=== PATIENT | male | born 1970 | race African-American/Black ===

== ENCOUNTER 2024-09-13 22:34 | Emergency (ER) | payer OTHER ==
[~2024-09-13] VITALS: Ht 167.6 cm; Wt 81.0 kg
[2024-09-13 22:42] VITALS: O2SAT 98
[2024-09-13 22:43] VITALS: BP 145/88; PULSE 101; RESP 14; TEMP 98; O2SAT 97
[2024-09-13] MEDS ORDERED: OFLO5DRO4 LEFT EAR (23:50)
== END 2024-09-13 23:59 | disposition home or self-care (01) ==
LOC: ER 22:34
DX: T16.2XXA Foreign body in left ear, initial encounter (principal); J44.89 Other specified chronic obstructive pulmonary disease; H60.92 Unspecified otitis externa, left ear; W44.9XXA Unspecified foreign body entering into or through a natural orifice, initial encounter; Y93.89 Activity, other specified; Y92.89 Other specified places as the place of occurrence of the external cause; Y99.8 Other external cause status
CPT/HCPCS: 69200; 99283; 99284

== ENCOUNTER 2025-01-25 02:37 | Emergency (ER) | payer OTHER ==
[~2025-01-25] VITALS: Ht 167.6 cm; Wt 77.0 kg
[~2025-01-25 02:37] MED LIST: OFLO5DRO4 LEFT EAR
[2025-01-25 03:18] VITALS: TEMP 36.7
[2025-01-25 04:32] LABS: CLARITY URINE CLEAR (CLEAR); COLOR URINE YELLOW (YELLOW); GLUCOSE URINE NEGATIVE (NEGATIVE); KETONES URINE NEGATIVE (NEGATIVE); LEUKOCYTE ESTERASE URINE NEGATIVE (NEGATIVE); NITRITE URINE NEGATIVE (NEGATIVE); OCCULT BLOOD URINE NEGATIVE (NEGATIVE); PH URINE 5.5 (4.5-8.0); PROTEIN URINE NEGATIVE (NEGATIVE); SPECIFIC GRAVITY URINE 1.018 (1.005-1.030); UROBILINOGEN URINE 0.2 E.U./dL (0.2-1.0)
[2025-01-25 04:50] LABS: BASOPHILS % 1.3 % (0.0-2.0); DIFFERENTIAL COMMENT 0; EOSINOPHILS % 2.3 % (0.0-5.0); HEMATOCRIT. 50.3 % (42.0-52.0); HEMOGLOBIN. 16.4 g/dL (14.0-18.0); LYMPHOCYTES % 33.8 % (20.0-50.0); MEAN CORPUSCULAR HEMOGLOBIN 29.5 pg (28.0-32.0); MEAN CORPUSCULAR HGB CONC 32.5 g/dL (31.0-37.0); MEAN CORPUSCULAR VOLUME 90.6 fL (80.0-94.0); MEAN PLATELET VOLUME 8.7 fl (7.4-10.4); NEUTROPHILS % 53.6 % (40.0-76.0); PLATELET 264 x1000/uL (130-400); RED BLOOD CELL COUNT 5.55 mill/uL (4.7-6.1); RED CELL DISTRIBUTION WIDTH 13.4 % (11.6-14.6); WHITE BLOOD COUNT 7.1 x1000/uL (4.5-11.0)
[2025-01-25 05:01] LABS: CHLORIDE 105 mEq/L (98-107); POTASSIUM 4.1 mEq/L (3.5-5.1); SODIUM 139 mEq/L (136-145)
[2025-01-25 05:02] LABS: CALCIUM 9.2 mg/dL (8.7-10.4); CARBON DIOXIDE 24 mEq/L (21-32)
[2025-01-25 05:05] LABS: INR 1.1; PROTHROMBIN TIME 11.4 sec (9.6-11.0)
[2025-01-25 05:07] LABS: GLUCOSE 96 mg/dL (70-105); UREA NITROGEN BLOOD 8 mg/dL (9-23)
[2025-01-25 05:08] LABS: TROPONIN I HIGH SENSITIVITY 12 ng/L (3.0-53)
[2025-01-25 06:17] VITALS: PULSE 80; RESP 20; O2SAT 98
[2025-01-25] MEDS: ALBUTEROL (0.083%) 2.5MG/3ML NEB HHN STA (06:17)
[2025-01-25] MEDS: IPRATROPIUM BROMIDE (0.02%) 0.5MG/2.5ML NEB HHN STA (06:17)
[2025-01-25 06:53] VITALS: BP 133/73; PULSE 83; RESP 15; O2SAT 99
[2025-01-25 07:13] LABS: TROPONIN I HIGH SENSITIVITY 12 ng/L (3.0-53)
[2025-01-25 07:51] LABS: TROPONIN I HIGH SENSITIVITY 11 ng/L (3.0-53)
== END 2025-01-25 08:08 | disposition left against medical advice (07) ==
LOC: ER 02:37 → CANBEDREQ 07:32 → ER 08:08
DX: R07.89 Other chest pain (principal); J44.89 Other specified chronic obstructive pulmonary disease; Z98.890 Other specified postprocedural states
CPT/HCPCS: 80048; 81003; 83690; 85025; 85610; 84484; 36415; 71045; 93005; 94644; 99285; Z7610 ×2; 94070; 94640; 94664; 94760; 98960

== ENCOUNTER 2025-02-27 15:50 | Emergency (ER) | payer OTHER ==
[~2025-02-27] VITALS: Ht 167.6 cm; Wt 79.0 kg
[2025-02-27 15:51] VITALS: BP 115/85; O2SAT 97
[2025-02-27 15:59] VITALS: PULSE 91; RESP 20; O2SAT 99
[2025-02-27 17:04] LABS: DIFFERENTIAL COMMENT 0; EOSINOPHILS % 2.5 % (0.0-5.0); HEMATOCRIT. 49.4 % (42.0-52.0); HEMOGLOBIN. 16.3 g/dL (14.0-18.0); MEAN CORPUSCULAR HGB CONC 33.1 g/dL (31.0-37.0); MEAN CORPUSCULAR VOLUME 90.7 fL (80.0-94.0); MEAN PLATELET VOLUME 9.2 fl (7.4-10.4); MONOCYTES % 11.4 % (2.0-8.0); NEUTROPHILS % 54.1 % (40.0-76.0); PLATELET 257 x1000/uL (130-400); RED BLOOD CELL COUNT 5.44 mill/uL (4.7-6.1); RED CELL DISTRIBUTION WIDTH 12.8 % (11.6-14.6); WHITE BLOOD COUNT 7.1 x1000/uL (4.5-11.0)
[2025-02-27 17:08] LABS: CHLORIDE 108 mEq/L (98-107); POTASSIUM 4.2 mEq/L (3.5-5.1); SODIUM 139 mEq/L (136-145)
[2025-02-27 17:09] LABS: CALCIUM 9.2 mg/dL (8.7-10.4); CARBON DIOXIDE 25 mEq/L (21-32)
[2025-02-27 17:14] LABS: CREATININE 1.1 mg/dL (0.6-1.3); GLUCOSE 140 mg/dL (70-105); UREA NITROGEN BLOOD 10 mg/dL (9-23)
[2025-02-27 17:17] LABS: TROPONIN I HIGH SENSITIVITY 16 ng/L (3.0-53)
[2025-02-27] MEDS ORDERED: LIDO-53 TP (18:40)
[2025-02-27] MEDS ORDERED: ACET-2708 MT (18:57)
== END 2025-02-27 19:01 | disposition left against medical advice (07) ==
LOC: ER 15:50
DX: R07.81 Pleurodynia (principal); F12.90 Cannabis use, unspecified, uncomplicated; J44.89 Other specified chronic obstructive pulmonary disease; Z79.899 Other long term (current) drug therapy; F17.200 Nicotine dependence, unspecified, uncomplicated; Z98.890 Other specified postprocedural states; Z88.0 Allergy status to penicillin
CPT/HCPCS: 80048; 83690; 85025; 85610; 84484; 36415; 71045; 93005; 99285; Z7610